=== PATIENT | male | born 1965 | race Caucasian/White ===

== ENCOUNTER → 2020-06-06 11:10 | Outpatient (CLI) | payer MEDICARE, SELFPAY ==
[2020-06-08 02:26] LABS: COVID19 Sendout Not Detected (Not Detect)
== END ==
PROVIDERS: PCP Family Medicine; Visit Provider Nurse Practitioner
DX: Z11.59 Encounter for screening for other viral diseases (principal)
CPT/HCPCS: 87635

== ENCOUNTER → 2020-06-09 09:00 | Outpatient (CLI) | payer MEDICARE, MEDICAID, SELFPAY ==
[2020-06-09 11:03] LABS: Ur Creatinine Normal (Normal)
[2020-06-09 11:04] LABS: UR Morphine/Opiate cutoff 300 Negative (Negative); Ur Specific Gravity Normal (Normal); Urine Amphetamines Positive (Negative); Urine Barbiturates Negative (Negative); Urine Benzodiazepines Negative (Negative); Urine Cocaine Negative (Negative); Urine MDMA Negative (Negative); Urine Methadone Negative (Negative); Urine Methamphetamines Positive (Negative); Urine Oxycodone Negative (Negative); Urine Phencyclidine Negative (Negative); Urine Tetrahydrocannabinol Negative (Negative); Urine Tricyclic Antidepressant Negative (Negative); Urine pH Normal (Normal)
[2020-07-07 19:04] VITALS: BMI 21.7
== END ==
PROVIDERS: Referring Provider Orthopaedic Surgery; Visit Provider Orthopaedic Surgery
DX: Z02.83 Encounter for blood-alcohol and blood-drug test (principal)
CPT/HCPCS: 80305

== ENCOUNTER → 2020-07-06 09:05 | Outpatient (CLI) | payer MEDICARE, MEDICAID, SELFPAY ==
[2020-07-06 11:48] LABS: COVID19 -Nasal RAPID Negative (Negative)
== END ==
PROVIDERS: Visit Provider Physician Assistant
DX: Z11.59 Encounter for screening for other viral diseases (principal)
CPT/HCPCS: 87635

== ENCOUNTER 2020-07-07 11:21 | Inpatient (IN) | payer MEDICARE, MEDICAID, SELFPAY ==
[2020-07-07] VITALS (18 sets, daily range): BP systolic 97–149; BP diastolic 52–96; PULSE 81–114; RESP 10–20; TEMP 36.1–37.1; O2SAT 94–100; BMI 21.7
--- NOTE | 2020-07-07 | DI.RAD.S_ITS ---
PROCEDURE: XR CERVICAL SPINE 2V OR 3V INDICATIONS: C3-4, C4-5 ACDF TECHNIQUE: 2 view(s) of the cervical spine were acquired. COMPARISON: None. FINDINGS: Bones: The intraoperative or immediate postoperative digital acquisition imaging showing placement of an anterior fusion plate spanning from the upper anterior border of C 5 through C6 and terminating at the lower anterior border of C7. Bilateral fixation screws are present at the C6 and C7 vertebral body levels. Anterior fixation screws are not found at time of imaging at the C5 vertebral body level. Note is made of interbody stable fusion at C3-4 and C4-5. Soft tissues: No prevertebral soft tissue swelling. IMPRESSION: Fusion procedures as discussed above from C3 through C5 utilizing anterior interbody staple devices with interbody disc prosthesis at each of those 2 levels, and then anterior plate fusion from C5 through C7 as noted. Normal alignment established. Dictated by: Baron Gray M.D. on 07/07/2020 at 15:13 Approved by: Baron Gray M.D. on 07/07/2020 at 15:16
[2020-07-07 11:59] LABS: Ur Creatinine Normal (Normal); Ur Specific Gravity Normal (Normal); Urine pH Normal (Normal)
[2020-07-07 12:00] LABS: UR Morphine/Opiate cutoff 300 Negative (Negative); Urine Amphetamines Negative (Negative); Urine Barbiturates Negative (Negative); Urine Benzodiazepines Negative (Negative); Urine Cocaine Negative (Negative); Urine MDMA Negative (Negative); Urine Methadone Negative (Negative); Urine Methamphetamines Negative (Negative); Urine Oxycodone Negative (Negative); Urine Phencyclidine Negative (Negative); Urine Tetrahydrocannabinol Negative (Negative); Urine Tricyclic Antidepressant Negative (Negative)
--- NOTE | 2020-07-07 12:03 | PM.PREOP ---
Pre-operative Note COVID-19 COVID-19 status: Negative Result date/Date tested (Pos, Neg/Pending): 07/06/20 Interval Note History & Physical reviewed/Exam performed by Physician: Yes Changes to H&P: No H&P completed within 30 days and has changed as indicated here:: [facility] drug screen clean today
[2020-07-07] MEDS: LACTATED RINGERS 1,000 ML 42 ML IV (12:15)
[2020-07-07] MEDS: METOPROLOL ER 25 MG TABLET PO (12:32)
[2020-07-07] MEDS: ACETAMINOPHEN 325 MG TABLET 975 MG PO (12:32)
[2020-07-07] MEDS: CEFAZOLIN 2 GM/100 ML FROZ.PIGGY IV ×2 (12:40→21:44)
--- NOTE | 2020-07-07 13:05 | SUR.OPER ---
Supine on padded OR bed, head on pillow, arm padded and tucked at side, legs uncrossed, safety belt at thigh, tape over blanket over lower legs .
[2020-07-07] MEDS: THROMBIN (RECOMBINANT) 5,000 UNIT VIAL 5000 UNIT TOP (13:12)
[2020-07-07] MEDS: SODIUM CHLORIDE 0.9% 1,000 ML, GENTAMICIN 80 MG IRR (13:14)
[2020-07-07] MEDS: BUPIVACAINE 0.25% W/ EPI (PF) 10 ML VIAL 20 ML INJ (13:15)
--- NOTE | 2020-07-07 14:23 | PM.OP.1 ---
Operative Date/Time/Diagnoses Date of procedure: 07/07/20 Time of procedure: 14:23 Pre-op diagnosis: Cervical stenosis with myelopathy Post-op diagnosis: same Procedure & Clinicians Procedure: C3-4, C4-5 ACDF with cages Iliac crest bone graft aspirate Use of microscope Anterior cervical hardware removal Same procedure as scheduled: Yes Indications: [age] year old male with intractable pain from stenosis. They had failed conservative management and requested operative intervention. Risks and benefits of surgery were discussed and appropriate consents were obtained. Surgeon: Roberto Anderson Sandblasting Supervisor: Soo Wilson Anesthesia Type: General Operative Notes Findings: None Closure Type: primary Specimen(s): none sent Prosthetic devices, grafts, tissues, transplants, or devices: Dani DANISHA-C Estimated Blood Loss (mL): 10 Procedure in detail: Patient was brought to the operating room and intubated on the table. A time-out was performed. Preoperative antibiotics were given. The neck was prepped and draped in the standard sterile fashion. Using a skin fold, we made a 3 cm oblique incision on the left side. We used Bovie to go through the platysma and then did a standard anterolateral blunt dissection down to the precervical fascia. Fascia was nicked and elevated up. We found his old plate and used the top of this for localization to the C4-5 level. We then subperiosteally elevated up the longus colli muscles as well as cleared up the top of the plate. I felt the 2 screws would possibly block our anterior plate at the C4-5 level and just remove the screws. There were been far too much more dissection and over stretching along the neck to try to get any for further amount of the hardware out. Self-retaining retractors were placed. [place] pins were placed. We then brought in the microscope. A scalpel used to perform an annulotomy. We then used a combination of pituitaries and curettes and Kerrison to perform a complete anterior diskectomy at C4-5. We used the bur to take down the posterior osteophytes. We took down the PLL and used Kerrison to remove any posterior disc material and osteophytes. At the end we could from the nerve hook cephalad caudally and out the foramen and everything was opened. A small stab incision was made over the left anterior iliac crest. A Jamshidi needle was advanced into the pelvis and 2 mL of bone marrow was aspirated. We then used the trials. We then packed a 14 x 17 x 6 mm DANISHA-C cage with Primagen bone graft and the iliac crest harvest. The cage was placed under fluoroscopic guidance. We then placed our two locking plates. We then moved up to the C3-4 level. Again a complete diskectomy was performed with the pituitary and curette and Kerrisons. We used the bur to decorticate the endplates and take down the posterior osteophytes. We then used Kerrisons to remove the remainder of the posterior osteophytes and disc material. At the end the nerve hook could be swept throughout and it was open. We trialed and placed another 14 x 17 x 6 mm cage with bone graft at the C3-4 level for the ACDF at this level. The wound was copiously irrigated. The self-retaining retractors and [place] pins were removed and final x-rays taken. The wound was irrigated. There was no bleeding. The carotid was beating nicely. The platysma was closed. The superficial was closed. The skin was closed. A sterile dressing was placed. They were then extubated and brought to recovery room with no complications. Complications: none Post-operative Condition: stable Disposition: PACU Plan for aftercare: Inpatient. Up with PT. soft collar for comfort.
[2020-07-07] MEDS: HYDROMORPHONE 2 MG INJ IV ×2 (15:00→15:05)
[2020-07-07] MEDS: fentaNYL 100 MCG/2 ML INJ IV (15:04)
--- NOTE | 2020-07-07 15:11 | SUR.PHASEI ---
bedside report given to JHONATHAN Tellez. pt in stable condition, vss. Transferred care of pt to JHONATHAN Tellez at this time.
[2020-07-07] MEDS: OXYCODONE IR 5 MG TABLET PO (15:36)
[2020-07-07] MEDS: LACTATED RINGERS 1,000 ML 125 ML IV (16:51)
[2020-07-07] MEDS: OXYCODONE IR 10 MG TABLET PO (18:45)
--- NOTE | 2020-07-07 19:08 | PC.NURSE ---
PATIENT IS EATING AND DRINKING WITHOUT DIFFICULTY,MOVING AROUND IN BED PATIENT PULLED IV OUT,REFUSES TO LET ME RESTART IV.REFUSES SCDS,DOES NOT LIKE THE SOFT COLLAR AND REFUSES TO WEAR. BED CHANGED OUT PER PATIENT REQUEST,OLD ONE MOVING TO MUCH
[2020-07-07] MEDS: ONDANSETRON 4 MG/2 ML INJ IV (21:31)
[2020-07-07] MEDS: HYDROMORPHONE 0.5 MG INJ 0.2 MG IV (21:52)
--- NOTE | 2020-07-08 01:26 | PC.NURSE ---
Pt reports no pain, discomfort only. Refusing SCD's and cervical collar. Advised to be aware of neck movements - pt states understanding. Excellent appetite, ate well w/no nausea.
[2020-07-08] MEDS: CEFAZOLIN 2 GM/100 ML FROZ.PIGGY IV (04:27)
[2020-07-08] MEDS: BENZOCAINE/MENTHOL 1 LOZ PKT 1 EACH PO (04:27)
[2020-07-08] MEDS: OXYCODONE IR 5 MG TABLET PO ×2 (05:12→08:21)
[2020-07-08 06:00] VITALS: BP 130/78; PULSE 85; RESP 16; TEMP 36.7; O2SAT 95
--- NOTE | 2020-07-08 07:48 | P.PN_ITS ---
Subjective Subjective Date Patient Seen: 07/08/20 Time Patient Seen: 07:48 Interval history: He is doing well. Pain is manageable with the medication, but still quite sore. Arms are fine. Exam Vital Signs (past 8 hours): - 07/07/20 23:49 07/08/20 06:00 Temperature 97.1 F L 98.1 F Pulse Rate 97 H 85 Respiratory Rate 16 16 Blood Pressure 136/88 130/78 Pulse Oximetry 97 95 Oxygen Delivery Method Room Air Oxygen Flow Rate 0 Const Orientation: alert and oriented x3 Back/Spine/Pelvis Other: CDI. 5/5 motor both upper extremities. Objective Labs Labs: Laboratory Results - last 24 hr 07/07/20 11:42 U Opiates 300ng/mL cut Negative Ur Oxycodone Screen Negative Urine Methadone Screen Negative Ur Barbiturates Screen Negative U Tricyclic Antidepress Negative Ur Phencyclidine Scrn Negative Ur Amphetamines Screen Negative U Methamphetamines Scrn Negative Ur MDMA Scrn (Ecstasy) Negative U Benzodiazepines Scrn Negative Urine Cocaine Screen Negative U Marijuana (THC) Screen Negative [facility] Medical History (Updated 06/05/20 @ 12:31 by Nevin Guillen RN) Acid reflux Anxiety Bleb, lung Cardiac disease Chest pain Chronic gastric ulcer with obstruction and without hemorrhage or perforation COPD (chronic obstructive pulmonary disease) Depression BAIG (dyspnea on exertion) Emphysema lung Head trauma Headache, migraine High cholesterol History of substance abuse HTN (hypertension) Major depressive disorder, recurrent, moderate Memory impairment Myocardial infarct (11/14/14) Paresthesias Raynaud's disease without gangrene Sleep apnea Surgical History (Updated 06/05/20 @ 11:22 by Nevin Guillen RN) History of colonoscopy (02/23/18) History of esophagogastroduodenoscopy (EGD) Hx of fusion of cervical spine (~1992) Hx of heart artery stent (2014) Hx of tonsillectomy Social History household members: significant other Smoking Status: Current every day smoker alcohol intake: current Assessment & Plan Post-op Postoperative Procedures: Procedures Operation Date: 07/07/20 12:15 Actual Procedures Side Surgeon p C34 & C45 anterior cervical discectomy & fusion w. bone graft, partial old hardware removal Roberto Anderson MD He is doing well. We will get him up with therapy then discharge home today. Quality VTE Deep Vein Thrombosis/Pulmonary Embolism Present on Admission: No
[2020-07-08 08:10] VITALS: BP 124/82; PULSE 91; RESP 18; TEMP 36.8; O2SAT 97
[2020-07-08] MEDS: CELECOXIB 200 MG CAPSULE PO (08:21)
[2020-07-08] MEDS: ASPIRIN EC 81 MG TABLET PO (08:21)
[2020-07-08] MEDS: ACETAMINOPHEN 325 MG TABLET 975 MG PO (08:21)
[2020-07-08] MEDS: DOCUSATE 100 MG CAPSULE PO (08:21)
--- NOTE | 2020-07-08 08:55 | PT.IIE ---
Current Diagnoses Unspecified cord compression (07/07/20) Spinal stenosis, cervical region (07/07/20) Arthrodesis status (07/07/20) Surgery Performed Operation Date: 07/07/20 12:15 Actual Procedures p C34 & C45 anterior cervical discectomy & fusion w. 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 perforation COPD (chronic obstructive pulmonary disease) Depression BAIG (dyspnea on exertion) Emphysema lung Head trauma Headache, migraine High cholesterol History of substance abuse HTN (hypertension) Major depressive disorder, recurrent, moderate Memory impairment Myocardial infarct (11/14/14) Paresthesias Raynaud's disease without gangrene Sleep apnea Physical Therapy Inpatient Evaluation/Re-Eval M1 PT/OT-IP Prior Functional Status Start: 07/08/20 10:40 Freq: NEEDED Status: Active Protocol: Document 07/08/20 08:55 AB (Rec: 07/08/20 10:50 AB [id number]) Medical Review Prior Functional Status Medical History Reviewed Yes Communication able to make needs known Mobility and Gait pt is agreeable to do PT Social History Household Members significant other Living Arrangements RV Number of Floors (Floors) One Floor Number of Stairs To Enter/Railing? 2 steps L handle on wall to enter Home Environment Standard Height Toilet,Walk in Shower Additional Social History Comment stated that he has his ex- girlfriend and his roommate's to assist him at home M2 PT-IP Current Condition Start: 07/08/20 10:40 Freq: NEEDED Status: Active Protocol: Document 07/08/20 08:55 AB (Rec: 07/08/20 10:50 AB [email or web address]) Physical Therapy Current Condition Current Condition Evaluation Date 07/08/20 Treatment Diagnosis s/p C3-4,C4-5 ACDF Precautions Cervical Spine Precautions Soft Collar for Comfort,No Heavy Lifting,Log Roll M3 PT-IP Subjective Start: 07/08/20 10:40 Freq: NEEDED Status: Active Protocol: Document 07/08/20 08:55 AB (Rec: 07/08/20 10:50 AB [id number]) Subjective Physical Therapy Visit Type Type Initial Evaluation Visit Start Time 08:55 Visit Stop Time 09:15 Total Visit Minutes 20 Number of CORPORATE LEGAL MANAGER Visits 0 Physical Therapy Visit Comments Patient Comments pt is agreeable to do PT Therapy Pain Assessment Pain When Pain Assessed At Rest Pain Present Pain Present Pain Reported Location neck and back Intensity 9 Scale Used Numeric (0 - 10) Pain Management Techniques Distraction,Re-positioning, Timing of Activity with Medications M4 PT-IP Mobility and Gait Start: 07/08/20 10:40 Freq: NEEDED Status: Active Protocol: Document 07/08/20 08:55 AB (Rec: 07/08/20 10:50 AB [id number]) PT-Bed Mobility Assessment Rolling Type of Rolling Log Rolling Level of Assist Standby Assistance Supine to Sit Supine to Sit Standby Assistance Sit to Supine Sit to Supine Standby Assistance PT-Transfer Assessment Sit to and From Stand Sit to and from Stand Standby Assistance Equipment Transfer Assistive Device None Orthotic/Prosthetic Devices or Brace: No Transfers Transfer Destination Bed,Chair Transfer Technique Stand Step Pivot Transfer Ability Level of Assist Standby Assistance Comments Mobility Comments pt up and walking in his room without AD and without soft collar on. pt educated on cervical precautions and log roll bed mobility. completed log roll supine<>sit SBA. ambulated in room without AD 40 ft. able to complete up/ down step stool without AD SBA . pt was able to maintain standing balance during his mobility in room without any LOB. pt does not have his soft collar on during PT session but is aware and adhere to his precautions Gait Assessment Gait Gait Assistance Required: Standby Assistance Distance (Feet) 40 Able to Maintain Weight Bearing Status Yes During Gait Assistive Devices Assistive Device None Orthotic/Prosthetic Devices or Brace: No Factors Limiting Gait Function Factors Limiting Gait Function Decreased Activity Tolerance, Limited Range of Motion,Pain Comments Gait Comments pls refer to mobility section for details Stair Climbing Assessment Evaluation Level of Assist On Stairs Standby Assistance Devices Stair Climbing Assistive Devices None Technique/Endurance Stair Climbing Direction Ascend and Descend Stair Climbing Technique Step to Step Number of Steps Climbed 1 Query Text: Stair Climbing Set # Repetitions (reps) 2 Comments Stair Climbing Comments up/down step stool SBA without AD PT-Balance Assessment Sitting Balance and Reactions Static Sitting Balance Ability Normal Dynamic Sitting Balance Ability Normal Standing Balance and Reactions Static Standing Balance Ability Good Dynamic Standing Balance Ability Good Device Used without AD M5 PT-IP Objective Assessments Start: 07/08/20 10:40 Freq: NEEDED Status: Active Protocol: Document 07/08/20 08:55 AB (Rec: 07/08/20 10:50 AB [id number]) Orientation Orientation/Cognition Level of Alertness Alert Orientation Name,Place,Situation Safety Awareness Understands Safety Issues Memory Description No Deficits Noted Gross Range of Motion Lower Extremity ROM Assessment Within Functional Limits Strength Lower Extremity Strength Assessment Within Functional Limits Coordination Assessment Gross Coordination Gross Coordination WNL Muscle Tone Muscle Tone WNL Yes M6 PT-IP Treatment Start: 07/08/20 10:40 Freq: NEEDED Status: Active Protocol: Document 07/08/20 08:55 AB (Rec: 07/08/20 10:50 AB [email or web address]) Physical Therapy Treatment Education Education Provided Precautions,Post-Op Packet, Safety M7 PT-IP Assessment and Plan Start: 07/08/20 10:40 Freq: NEEDED Status: Active Protocol: Document 07/08/20 08:55 AB (Rec: 07/08/20 10:50 AB [email or web address]) PT Summary Assessment and Plan Potential Rehabilitation Potential Good Status of Condition at Evaluation Stable Summary Impairments Pain,ROM,Strength,Balance, Coordination,Sensation,Tone, Cognition,Bed Mobility, Transfers,Gait,Activity Tolerance Assessment Summary pt requires SBA with mobility for safety. plans to go home with his friends to assist him as needed. pt may go home when medically stable. Goals Bed Mobility Goal Independent Transfer Goal Independent Gait Goal Independent Gait Distance 200 Other Goals up/down 2 steps without AD mod I Days to Meet Goals 3 Frequency of Treatment Frequency Of Treatment Twice a Day Treatment Plan Physical Therapy Treatment Plan Bed Mobility Training,Transfer Training,Gait Training, Therapeutic Exercise,Balance Retraining,Post Op Education, Discharge Planning,Hot or Cold Pack,Neuromuscular Re-ed, Coordination Retraining,Manual Therapy Recommendations To Nursing Amount of Assist Needed Standby Assistance Discharge Recommendations PT Discharge Recommendations Home with Assistance Transportation Needs at Discharge Private Vehicle
--- NOTE | 2020-07-08 09:17 | OT.IP.EVAL ---
Current Diagnoses Unspecified cord compression (07/07/20) Spinal stenosis, cervical region (07/07/20) Arthrodesis status (07/07/20) Surgery Performed Operation Date: 07/07/20 12:15 Actual Procedures p C34 & C45 anterior cervical discectomy & fusion w. bone graft, partial old hardware removal - Roberto Anderson MD Past Medical History (Last Updated 06/05/20 @ 12:31 by Nevin Guillen, RN) Acid reflux Anxiety Bleb, lung Cardiac disease Chest pain Chronic gastric ulcer with obstruction and without hemorrhage or perforation COPD (chronic obstructive pulmonary disease) Depression BAIG (dyspnea on exertion) Emphysema lung Head trauma Headache, migraine High cholesterol History of substance abuse HTN (hypertension) Major depressive disorder, recurrent, moderate Memory impairment Myocardial infarct (11/14/14) Paresthesias Raynaud's disease without gangrene Sleep apnea Surgical History (Last Updated 06/05/20 @ 11:22 by Nevin Guillen, RN) History of colonoscopy (02/23/18) History of esophagogastroduodenoscopy (EGD) Hx of fusion of cervical spine (~1992) Hx of heart artery stent (2014) Hx of tonsillectomy Occupational Therapy Inpatient Evaluation/Re-Eval M1 PT/OT-IP Prior Functional Status Start: 07/08/20 12:58 Freq: NEEDED Status: Active Protocol: Document 07/08/20 09:17 [facility] (Rec: 07/08/20 13:13 [facility] [id number]) Medical Review Prior Functional Status Medical History Reviewed Yes Communication able to make needs known Mobility and Gait pt is agreeable to do PT Activities of Daily Living and IADL's Independent per pt. Social History Household Members significant other Living Arrangements RV Number of Floors (Floors) One Floor Number of Stairs To Enter/Railing? 2 steps L handle on wall to enter Home Environment Standard Height Toilet,Walk in Shower Additional Social History Comment stated that he has his ex- girlfriend and his roommate's to assist him at home M2 OT-IP Current Condition Start: 07/08/20 12:58 Freq: Status: Active Protocol: Document 07/08/20 09:17 [facility] (Rec: 07/08/20 13:13 [facility] [id number]) Occupational Therapy Current Condition Current Condition Evaluation Date 07/08/20 Treatment Diagnosis S/p C3-4, C4-5 ACDF Diagnosis Onset Date 07/07/20 Post Operative Precautions Cervical Spine Precautions Soft Collar for Comfort,No Heavy Lifting,Log Roll M3 OT- IP Subjective and Pain Start: 07/08/20 12:58 Freq: Status: Active Protocol: Document 07/08/20 09:17 [facility] (Rec: 07/08/20 13:13 [facility] [id number]) OT- Subjective Occupational Therapy Visit Type Type Initial Evaluation Visit Start Time 09:17 Visit Stop Time 09:32 Total Visit Minutes 15 Occupational Therapy Visit Comments Patient Comments Pt agreed to work with OT. Patient/Caregiver Goals To go home. OT Pain Assessment Pain When Pain Assessed At Rest Pain Present Pain Present Denied Pain M4 OT- IP ADL's Start: 07/08/20 12:58 Freq: Status: Active Protocol: Document 07/08/20 09:17 [facility] (Rec: 07/08/20 13:13 [facility] [id number]) OT [id number] Comments OT Self-Feeding Comments Not at meal time. OT ADL-Grooming General Evaluation Grooming Ability Independent OT ADL-Oral Care General Eval Oral Care Ability Standby Assistance Comments Oral Care Comments Pt needing initial vc to spit into a cup or hinge at his hips to lean forwards to spit to best follow his cervical precautions. OT ADL-Dressing General Eval Upper Body Dressing Ability Independent Lower Body Dressing Ability Standby Assistance Comments OT Dressing Comments Educated to pt best to cross his legs over to marlene his socks and shoes. Pt also issued a licensed and certified midwife to assist for needs. Pt able to independently marlene/doff the soft collar on his own. OT ADL-Toileting Comments OT Toileting Comments Pt not having to use the toilet, reminded pt to be mindful of his head positioning when wiping. OT ADL-Bathing Comments OT Bathing Comments Pt states to shower at home. M5 OT- IP IADL's Start: 07/08/20 12:58 Freq: Status: Active Protocol: Document 07/08/20 09:17 [facility] (Rec: 07/08/20 13:13 [facility] [id number]) OT-Instrumental Activities of Daily Living Home Safety Awareness Home Safety Comments Pt's ex-girlfriend to assist pt as needed, especially for IADL and caring for the dogs. M6 OT- IP Functional Cognition Start: 07/08/20 12:58 Freq: Status: Active Protocol: Document 07/08/20 09:17 [facility] (Rec: 07/08/20 13:13 [facility] [id number]) Cognitive Factors Limiting Selfcare Function Cognitive Ability Level of Alertness Alert Patient Orientation Name,Age,Birthday,Month,Date, Year,Day of Week,Place, Situation Attention Span Ability Capable of Focused Attention, Capable of Sustained Attention Ability to Follow Commands Able to Follow Multi-Step Commands Memory Description Short Term Impaired Safety Awareness Decreased Ability to Apply Precautions,Underestimates Need for Assistance Cognitive Comments Cognitive Assessment Comments Pt suggested to put up reminders/sign in the RV to remind him not to move his head extensively, i.e prior pt states would bend his trunk and head over to marlene/doff his shoes/socks. OT- Vision and Hearing OT- Hearing Assessment OT- Hearing Assessment WFL M7 OT- IP Mobility and Balance Start: 07/08/20 12:58 Freq: Status: Active Protocol: Document 07/08/20 09:17 [facility] (Rec: 07/08/20 13:13 [facility] [id number]) OT- Bed Mobility Assessment Supine to Sit Supine to Sit Assist Standby Assistance Sit to Supine Sit to Supine Assist Standby Assistance OT-Transfer Assessment Sit to and From Stand Sit to and from Stand Independent Transfers Transfer Ability Independent Technique Transfer Destination Bed,Chair Comments Mobility Comments Pt just needing on initial cue to log rolling otherwise independent for mobility needs in the room. OT- Balance Assessment Sitting Balance and Reactions Static Sitting Balance Ability Normal Dynamic Sitting Balance Ability Normal Standing Balance and Reactions Static Standing Balance Ability Good M8 OT- IP Objective Assessments Start: 07/08/20 12:58 Freq: Status: Active Protocol: Document 07/08/20 09:17 [facility] (Rec: 07/08/20 13:13 [facility] [id number]) OT Gross Range of Motion Upper Extremity Range of Motion Assessment Within Functional Limits OT-Muscle Tone Assessment Muscle Tone WNL Yes M9 OT- IP Assessment and Plan Start: 07/08/20 12:58 Freq: Status: Active Protocol: Document 07/08/20 09:17 [facility] (Rec: 07/08/20 13:13 [facility] [id number]) OT Summary Assessment and Plan Potential Rehabilitation Potential Excellent Analytic Complexity at Evaluation Low Summary OT Impairments Bathing Progress Towards Goals Progressing Toward Goals Assessment Summary Pt low complexity and main barrier is that he is a bit forgetful of his precautions. Pt to have ex-girlfriend stay with him initially for assist. Goals Shower Transfer Goal Independent Days to Meet Goals 1 Frequency of Treatment Frequency Of Treatment Once a Day Treatment Plan OT Treatment Plan ADL Training,Functional Cognition Training,Patient/ Family Education,Discharge Planning Other Treatment Recommendations and Next shower if still here Treatment Focus Discharge Recommendations OT Discharge Recommendations Home with Assistance Home Equipment Needs shower chair, licensed and certified midwife Transportation Needs at Discharge Private Vehicle
--- NOTE | 2020-07-08 09:24 | SLP.IPNOTE ---
Pt screened for dysphagia and dysphonia s/p ACDF surgery yesterday afternoon. Pt c/o mild discomfort and soreness with swallow but was able to consume allan and eggs for breakfast. He was observed to frequently clear his throat during the entirety of our conversation, which he stated he has been doing since surgery. He denied coughing, choking and sticking sensation with swallow and showed no overt s/sx of dysphagia when observed consuming thin liquid. He stated his voice sounded lower than normal to him, but no other concerns related to voice. The pt was educated orally and in writing RE potential effects of ACDF surgery on swallow and voice. He was encouraged to inform his PCP if he observed s/sx of dysphagia or dysphonia greater than 2 weeks after surgery or sooner if dysphagia concerns were significant. He verbalized understanding and agreement. No formal swallow of voice evaluations are warranted at this time.
[2020-07-08] MEDS: FLUTICASONE/SALMETEROL 250/50 60 PUFF DISKUS INH (09:40)
[2020-07-08] MEDS: TIOTROPIUM BROMIDE 18 MCG INHALER INH (09:40)
[2020-07-08] MEDS: ALBUTEROL/IPRATROPIUM MDI 1 PUFF INH (09:41)
[2020-07-08] MEDS: ALBUTEROL HFA 200 PUFF/18 GM INH (COVID POS/VENT PTS) INH (09:42)
[2020-07-08 09:45] VITALS: PULSE 85; RESP 16; O2SAT 97
--- NOTE | 2020-07-08 09:50 | PT.IIE ---
Current Diagnoses Unspecified cord compression (07/07/20) Spinal stenosis, cervical region (07/07/20) Arthrodesis status (07/07/20) Surgery Performed Operation Date: 07/07/20 12:15 Actual Procedures p C34 & C45 anterior cervical discectomy & fusion w. 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 perforation COPD (chronic obstructive pulmonary disease) Depression BAIG (dyspnea on exertion) Emphysema lung Head trauma Headache, migraine High cholesterol History of substance abuse HTN (hypertension) Major depressive disorder, recurrent, moderate Memory impairment Myocardial infarct (11/14/14) Paresthesias Raynaud's disease without gangrene Sleep apnea Physical Therapy Inpatient Evaluation/Re-Eval M1 PT/OT-IP Prior Functional Status Start: 07/08/20 10:40 Freq: NEEDED Status: Active Protocol: Document 07/08/20 09:50 AB (Rec: 07/08/20 10:50 AB [id number]) Medical Review Prior Functional Status Medical History Reviewed Yes Communication able to make needs known Mobility and Gait pt is agreeable to do PT Social History Household Members significant other Living Arrangements RV Number of Floors (Floors) One Floor Number of Stairs To Enter/Railing? 2 steps L handle on wall to enter Home Environment Standard Height Toilet,Walk in Shower Additional Social History Comment stated that he has his ex- girlfriend and his roommate's to assist him at home M2 PT-IP Current Condition Start: 07/08/20 10:40 Freq: NEEDED Status: Active Protocol: Document 07/08/20 09:50 AB (Rec: 07/08/20 10:50 AB [email or web address]) Physical Therapy Current Condition Current Condition Evaluation Date 07/08/20 Treatment Diagnosis s/p C3-4,C4-5 ACDF Precautions Cervical Spine Precautions Soft Collar for Comfort,No Heavy Lifting,Log Roll M3 PT-IP Subjective Start: 07/08/20 10:40 Freq: NEEDED Status: Active Protocol: Document 07/08/20 09:50 AB (Rec: 07/08/20 10:50 AB [email or web address]) Subjective Physical Therapy Visit Type Type Initial Evaluation Visit Start Time 09:50 Visit Stop Time 10:20 Total Visit Minutes 30 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 0 Physical Therapy Visit Comments Patient Comments pt is agreeable to do PT Therapy Pain Assessment Pain When Pain Assessed At Rest Pain Present Pain Present Pain Reported Location neck and back Intensity 9 Scale Used Numeric (0 - 10) Pain Management Techniques Distraction,Re-positioning, Timing of Activity with Medications M4 PT-IP Mobility and Gait Start: 07/08/20 10:40 Freq: NEEDED Status: Active Protocol: Document 07/08/20 09:50 AB (Rec: 07/08/20 10:50 AB [email or web address]) PT-Bed Mobility Assessment Rolling Type of Rolling Log Rolling Level of Assist Standby Assistance Supine to Sit Supine to Sit Standby Assistance Sit to Supine Sit to Supine Standby Assistance PT-Transfer Assessment Sit to and From Stand Sit to and from Stand Standby Assistance Equipment Transfer Assistive Device None Orthotic/Prosthetic Devices or Brace: No Transfers Transfer Destination Bed,Chair Transfer Technique Stand Step Pivot Transfer Ability Level of Assist Standby Assistance Comments Mobility Comments pt up and walking in his room without AD and without soft collar on. pt educated on cervical precautions and log roll bed mobility. completed log roll supine<>sit SBA. ambulated in room without AD 40 ft. able to complete up/ down step stool without AD SBA . pt was able to maintain standing balance during his mobility in room without any LOB. pt does not have his soft collar on during PT session but is aware and adhere to his precautions Gait Assessment Gait Gait Assistance Required: Standby Assistance Distance (Feet) 40 Able to Maintain Weight Bearing Status Yes During Gait Assistive Devices Assistive Device None Orthotic/Prosthetic Devices or Brace: No Factors Limiting Gait Function Factors Limiting Gait Function Decreased Activity Tolerance, Limited Range of Motion,Pain Comments Gait Comments pls refer to mobility section for details Stair Climbing Assessment Evaluation Level of Assist On Stairs Standby Assistance Devices Stair Climbing Assistive Devices None Technique/Endurance Stair Climbing Direction Ascend and Descend Stair Climbing Technique Step to Step Number of Steps Climbed 1 Query Text: Stair Climbing Set # Repetitions (reps) 2 Comments Stair Climbing Comments up/down step stool SBA without AD PT-Balance Assessment Sitting Balance and Reactions Static Sitting Balance Ability Normal Dynamic Sitting Balance Ability Normal Standing Balance and Reactions Static Standing Balance Ability Good Dynamic Standing Balance Ability Good Device Used without AD M5 PT-IP Objective Assessments Start: 07/08/20 10:40 Freq: NEEDED Status: Active Protocol: Document 07/08/20 09:50 AB (Rec: 07/08/20 10:50 AB [email or web address]) Orientation Orientation/Cognition Level of Alertness Alert Orientation Name,Place,Situation Safety Awareness Understands Safety Issues Memory Description No Deficits Noted Gross Range of Motion Lower Extremity ROM Assessment Within Functional Limits Strength Lower Extremity Strength Assessment Within Functional Limits Coordination Assessment Gross Coordination Gross Coordination WNL Muscle Tone Muscle Tone WNL Yes M6 PT-IP Treatment Start: 07/08/20 10:40 Freq: NEEDED Status: Active Protocol: Document 07/08/20 09:50 AB (Rec: 07/08/20 10:50 AB [email or web address]) Physical Therapy Treatment Education Education Provided Precautions,Post-Op Packet, Safety M7 PT-IP Assessment and Plan Start: 07/08/20 10:40 Freq: NEEDED Status: Active Protocol: Document 07/08/20 09:50 AB (Rec: 07/08/20 10:50 AB [email or web address]) PT Summary Assessment and Plan Potential Rehabilitation Potential Good Status of Condition at Evaluation Stable Summary Impairments Pain,ROM,Strength,Balance, Coordination,Sensation,Tone, Cognition,Bed Mobility, Transfers,Gait,Activity Tolerance Assessment Summary pt requires SBA with mobility for safety. plans to go home with his friends to assist him as needed. pt may go home when medically stable. Goals Bed Mobility Goal Independent Transfer Goal Independent Gait Goal Independent Gait Distance 200 Other Goals up/down 2 steps without AD mod I Days to Meet Goals 3 Frequency of Treatment Frequency Of Treatment Twice a Day Treatment Plan Physical Therapy Treatment Plan Bed Mobility Training,Transfer Training,Gait Training, Therapeutic Exercise,Balance Retraining,Post Op Education, Discharge Planning,Hot or Cold Pack,Neuromuscular Re-ed, Coordination Retraining,Manual Therapy Recommendations To Nursing Amount of Assist Needed Standby Assistance Discharge Recommendations PT Discharge Recommendations Home with Assistance Transportation Needs at Discharge Private Vehicle
--- NOTE | 2020-07-08 11:19 | PC.NURSE ---
Patient discharged home. His anterior neck dressing was cdi with soft collar in place. Medicated with 5mg of oxycodone and helpful. Steady on his feet, out the door around 1030.
== END 2020-07-08 10:30 | disposition home or self-care (01) | DRG 472 ==
PROVIDERS: Admitting Provider Orthopaedic Surgery; Referring Provider Orthopaedic Surgery; Visit Provider Orthopaedic Surgery
PROC: 0RG20A0 Fusion of 2 or more Cervical Vertebral Joints with Interbody Fusion Device, Anterior Approach, Anterior Column, Open Approach (ICD-10-PCS; principal; 2020-07-07 12:15)
DX: M48.02 Spinal stenosis, cervical region (principal); G95.20 Unspecified cord compression; M43.22 Fusion of spine, cervical region; G47.33 Obstructive sleep apnea (adult) (pediatric); F32.9 Major depressive disorder, single episode, unspecified; I25.10 Atherosclerotic heart disease of native coronary artery without angina pectoris; J44.9 Chronic obstructive pulmonary disease, unspecified; F41.9 Anxiety disorder, unspecified; F17.210 Nicotine dependence, cigarettes, uncomplicated; K21.9 Gastro-esophageal reflux disease without esophagitis; Z11.59 Encounter for screening for other viral diseases
CPT/HCPCS: 72040; 76000; 80305; 82962; 87635; 94640; 97161; 97165; C1776; A9270; J0330; J0690; J1100; J1170; J2250; J2405; J2704; J3010